=== PATIENT | male | born 1990 | race Caucasian/White ===

== ENCOUNTER 2022-05-30 12:00 | Emergency (ER) | payer MEDICAID, SELFPAY ==
--- NOTE | 2022-05-30 12:03 | ED.GENADULT ---
HPI - General Adult General Chief complaint: Nausea/Vomiting/Diarrhea <GENOVEVA Sosa - Last Filed: 05/30/22 12:09> Stated complaint: Sever stomach pain/multiple complaints <GENOVEVA Sosa - Last Filed: 05/30/22 12:09> Time Seen by Provider: 05/30/22 13:45 <GENOVEVA Sosa - Last Filed: 05/30/22 12:09> Source: patient <GENOVEVA Helm - Last Filed: 05/30/22 16:32> Mode of arrival: ambulatory <GENOVEVA Helm Last Filed: 05/30/22 16:32> Limitations: no limitations <GENOVEVA Helm Last Filed: 05/30/22 16:32> History of Present Illness HPI narrative: Patient is a 31 year old assigned male at with a history of alcohol abuse presenting to the emergency department today with nausea, vomiting, and alcohol use. Patient states that he has been drinking 4 tall boys throughout each afternoon and 6 nips in the mornings. Patient states that he often wakes up with nausea and vomiting. Patietn states that he would like to detox at home. Patient denies any dizziness, lightheadedness, fever, chills, blurry vision, double vision, loss of vision, chest pain, difficulty breathing, shortness of breath, back pain, night sweats, pain with urination, increased urinary frequency, increased urinary urgency, blood in his urine or stool, syncope or a near syncopal episode, recent trauma or falls, bowel incontinence, bladder incontinence, bowel retention, bladder retention, or any other complaints at this time. <GENOVEVA Helm - Last Filed: 05/30/22 16:32> Onset (ago): day(s) <GENOVEVA Helm - Last Filed: 05/30/22 16:32> Severity: mild <GENOVEVA Helm Last Filed: 05/30/22 16:32> Severity scale (1-10): 2 <GENOVEVA Helm Last Filed: 05/30/22 16:32> Relieving factors: none <GENOVEVA Helm Last Filed: 05/30/22 16:32> Exacerbating factors: none <GENOVEVA Helm Last Filed: 05/30/22 16:32> Associated symptoms: nausea/vomiting <GENOVEVA Helm Last Filed: 05/30/22 16:32> Treatments prior to arrival: none <GENOVEVA Helm Last Filed: 05/30/22 16:32> Related Data Home medications: Previous Rx's Medication Instructions Recorded chlordiazepoxide HCl 25 mg capsule See Rx Instructions .Route 05/30/22 .COMPLEX #20 caps <GENOVEVA Sosa - Last Filed: 05/30/22 12:09> Allergies/adverse reactions: Allergies Allergy/AdvReac Type Severity Reaction Status Date / Time No Known Allergies Allergy Verified 05/30/22 12:05 <GENOVEVA Sosa - Last Filed: 05/30/22 12:09> Review of Systems Constitutional: Constitutional: Reports no additional constitutional complaints, Denies chills, Denies fever(s) and Denies night sweats <GENOVEVA Helm Last Filed: 05/30/22 16:32> Eyes: Eyes: Reports no additional eye complaints, Denies blurry vision, Denies change in vision, Denies diplopia, Denies eye discharge, Denies loss of vision and Denies eye pain <GENOVEVA Helm Last Filed: 05/30/22 16:32> ENT: Denies dizziness <GENOVEVA Helm - Last Filed: 05/30/22 16:32> Cardiovascular: Cardiovascular: Reports no additional cardiovascular complaints, Denies chest pain, Denies lightheadedness, Denies Loss of Consciousness and Denies dyspnea <GENOVEVA Helm Last Filed: 05/30/22 16:32> Respiratory: Respiratory: Reports no additional respiratory complaints and Denies dyspnea <GENOVEVA Helm Last Filed: 05/30/22 16:32> Gastrointestinal: Gastrointestinal: Reports no additional gastrointestinal complaints, Denies abdominal pain, Denies melena, Denies hematochezia, Denies change in bowel habits, Denies change in stool character, Reports nausea and Reports vomiting <GENOVEVA Helm Last Filed: 05/30/22 16:32> Genitourinary: Genitourinary: Reports no additional male genitourinary complaints, Denies hematuria, Denies oliguria, Denies difficulty urinating, Denies dysuria, Denies urinary frequency, Denies urinary hesitancy, Denies urinary incontinence and Denies urinary urgency <GENOVEVA Helm - Last Filed: 05/30/22 16:32> Musculoskeletal: Musculoskeletal: Reports no additional musculoskeletal complaints, Denies numbness and Denies tingling <GENOVEVA Helm - Last Filed: 05/30/22 16:32> Neurologic: Denies dizziness, Denies loss of vision, Denies numbness and Denies tingling <GENOVEVA Helm - Last Filed: 05/30/22 16:32> Psychiatric: Psychiatric: Reports no additional psychiatric complaints <GENOVEVA Helm - Last Filed: 05/30/22 16:32> Endocrine: Endocrine: Reports no additional endocrine complaints <GENOVEVA Helm - Last Filed: 05/30/22 16:32> Hematologic/Lymphatic: Hematologic/Lymphatic: Reports no additional hematologic/lymphatic complaints <GENOVEVA Helm - Last Filed: 05/30/22 16:32> Allergic/Immunologic: Allergic/Immunologic: Reports no additional allergic/immunologic complaints <GENOVEVA Helm - Last Filed: 05/30/22 16:32> [facility] Past Medical History Attestation statement: The following information was validated with the patient. <GENOVEVA Helm - Last Filed: 05/30/22 16:32> Source: old records reviewed and nursing notes reviewed <GENOVEVA Helm - Last Filed: 05/30/22 16:32> Social History Social History: Social History Advance Directives: No Advance Directives Information Provided: No <GENOVEVA Sosa - Last Filed: 05/30/22 12:09> Physical Exam ED Vital Signs: Vital Signs - 24 hr 05/30/22 12:04 05/30/22 14:17 Temperature 98 F 98.4 F Pulse Rate 103 H 79 Respiratory Rate 18 14 Blood Pressure 165/89 H 130/92 H Pulse Oximetry 98 96 Oxygen Delivery Method Room Air Room Air BMI result Body Mass Index 29.9 <GENOVEVA Sosa - Last Filed: 05/30/22 12:09> Vital Signs - 24 hr 05/30/22 12:04 05/30/22 14:17 Temperature 98 F 98.4 F Pulse Rate 103 H 79 Respiratory Rate 18 14 Blood Pressure 165/89 H 130/92 H Pulse Oximetry 98 96 Oxygen Delivery Method Room Air Room Air BMI result Body Mass Index 29.9 <GENOVEVA Helm - Last Filed: 05/30/22 16:32> Const General: cooperative, no acute distress, alert and awake <GENOVEVA Helm - Last Filed: 05/30/22 16:32> Nutritional Appearance: well nourished <GENOVEVA Helm - Last Filed: 05/30/22 16:32> Orientation/consciousness: patient oriented x3 <GENOVEVA Helm - Last Filed: 05/30/22 16:32> Limitations: no limitations <GENOVEVA Helm - Last Filed: 05/30/22 16:32> HENMT Head: Yes normal to inspection and Yes atraumatic <GENOVEVA Helm - Last Filed: 05/30/22 16:32> Ears: hearing grossly normal bilaterally and external ears normal <GENOVEVA Helm - Last Filed: 05/30/22 16:32> General nose exam: Normal external nose present, no nasal discharge noted and no epistaxis <GENOVEVA Helm - Last Filed: 05/30/22 16:32> Face and sinus: Yes normal facial exam, No abrasion and No laceration <GENOVEVA Helm - Last Filed: 05/30/22 16:32> Mouth: Normal oral and palatal mucosa present, no drooling and no muffled voice <GENOVEVA Helm - Last Filed: 05/30/22 16:32> Eyes General: appearance normal, both eyes and all related structures <GENOVEVA Helm - Last Filed: 05/30/22 16:32> Periorbital: periorbital findings normal <GENOVEVA Helm - Last Filed: 05/30/22 16:32> Eyelids: Yes eyelids normal <GENOVEVA Helm - Last Filed: 05/30/22 16:32> Conjunctivae: conjunctivae normal <GENOVEVA Helm - Last Filed: 05/30/22 16:32> Pupils: Equal, round and reactive pupils present <Kay Watters PA - Last Filed: 05/30/22 16:32> EOM: EOMs intact bilaterally <Kay WattersGENOVEVA - Last Filed: 05/30/22 16:32> Neck Neck: Yes normal visual inspection, Yes full ROM and Yes no lymphadenopathy <Kay Watters PA - Last Filed: 05/30/22 16:32> Chest Chest palpation & inspection: normal inspection of the chest <Kay Stewartjared PA - Last Filed: 05/30/22 16:32> Resp Effort & Inspection: normal respiratory effort and able to speak in complete sentences <Kay Watters PA - Last Filed: 05/30/22 16:32> Auscultation: clear to auscultation bilaterally <Kay WattersGENOVEVA - Last Filed: 05/30/22 16:32> Cardio Rate: regular rate <Kay Watters PA - Last Filed: 05/30/22 16:32> Rhythm: regular rhythm <Kay Watters PA - Last Filed: 05/30/22 16:32> GI Inspection: Yes normal to inspection <Kay Watters PA - Last Filed: 05/30/22 16:32> Palpation (GI): Soft to palpation, not firm, nontender and no guarding <Kay Watters PA - Last Filed: 05/30/22 16:32> Neuro General: patient oriented x3 and moves all extremities <Kay Stewartjared PA - Last Filed: 05/30/22 16:32> Cranial nerves: Yes Equal, round and reactive pupils present <Kay StewartGENOVEVA coleman - Last Filed: 05/30/22 16:32> Cognition (Neuro): normal cognition <Kay StewartGENOVEVA coleman - Last Filed: 05/30/22 16:32> Motor exam (neuro): 5/5 motor strength present throughout <Kay StewartGENOVEVA coleman - Last Filed: 05/30/22 16:32> Sensory Exam: Normal double simultaneous stimulation for sensation <Kay Stewartjared PA - Last Filed: 05/30/22 16:32> Coordination: [id number] test normal <Kaykrystal StewartGENOVEVA coleman - Last Filed: 05/30/22 16:32> Extrem General: Yes normal to inspection, Yes full ROM and Yes capillary refill normal <GENOVEVA Helm - Last Filed: 05/30/22 16:32> Psych Appearance: grossly normal <GENOVEVA Helm - Last Filed: 05/30/22 16:32> Mental Status: mental status grossly normal <GENOVEVA Helm - Last Filed: 05/30/22 16:32> Affect: normal affect <GENOVEVA Helm - Last Filed: 05/30/22 16:32> Attitude: cooperative <GENOVEVA Helm - Last Filed: 05/30/22 16:32> Thought process: Normal thought process present <GENOVEVA Helm Last Filed: 05/30/22 16:32> Thought content: Normal thought content present <GENOVEVA Helm - Last Filed: 05/30/22 16:32> Insight: Good insight present (Psych) <GENOVEVA Helm Last Filed: 05/30/22 16:32> Course Course Course Narrative: RME--31yo M w/no sig PMHx c/o cough, dry heaving, nausea, sweats and cold chills x months. Admits sx are intermittent, happen when wakes up in the morning lasting a few hours. Endorses ETOH abuse about 4-5 drinks daily. Last drink last night. Denies known ETOH withdrawal Nontoxic appearing, VSS Labs, UA, Tox, Ethanol ordered <GENOVEVA Sosa - Last Filed: 05/30/22 12:09> Medications Administered Discontinued Medications Generic Name Dose Route Start Last Admin Trade Name Freq PRN Reason Stop Dose Admin Sodium Chloride 1,000 mls @ 999 mls/hr 05/30/22 14:00 05/30/22 15:40 Ns IV 05/30/22 15:00 Infused .Q1H1M ISIDORO Infusion Ondansetron HCl 4 mg 05/30/22 13:46 05/30/22 14:06 Ondansetron Hcl 4 Mg/2 Ml Vial IVPUSH 05/30/22 13:47 4 mg ONCE ONE Administration <GENOVEVA Sosa Last Filed: 05/30/22 12:09> Medications Administered Discontinued Medications Generic Name Dose Route Start Last Admin Trade Name Freq PRN Reason Stop Dose Admin Sodium Chloride 1,000 mls @ 999 mls/hr 05/30/22 14:00 05/30/22 15:40 Ns IV 05/30/22 15:00 Infused .Q1H1M ISIDORO Infusion Ondansetron HCl 4 mg 05/30/22 13:46 05/30/22 14:06 Ondansetron Hcl 4 Mg/2 Ml Vial IVPUSH 05/30/22 13:47 4 mg ONCE ONE Administration <GENOVEVA Helm - Last Filed: 05/30/22 16:32> Medical Decision Making Medical Decision Making [facility] Narrative: Patient is a 31 year old assigned male at with a history of alcohol use presenting to the emergency department today with increased nausea and vomiting. Patient's physical exam was unremarkable. Patient's blood work was unremarkable. I explained my physical exam findings as well as all test results to the patient. I answered all questions asked by the patient. Patient spoke to CARE team who provided the patient with detox resources and financial planning resources to get him started on [facility] [employer]. I stressed the importance of the patient taking his medication as prescribed. I stressed the importance of the patient following up with his primary care provider. I stressed the importance of the patient returning to the emergency department immediately if his symptoms were to worsen or if he were to develop any dizziness, shortness of breath, difficulty breathing, chest pain, blurry vision, loss of vision, nausea, vomiting, abdominal pain, fever, chills, back pain, or any other complaints. Patient verbalized agreement and understanding with this treatment plan and discharge. <GENOVEVA Helm - Last Filed: 05/30/22 16:32> Differential Diagnosis Differential Diagnoses: The differential diagnosis associated with the presentation includes <GENOVEVA Helm - Last Filed: 05/30/22 16:32> alcohol abuse, nausea <GENOVEVA Helm - Last Filed: 05/30/22 16:32> Lab Data [facility] Lab Attestation statement: I reviewed the patient's lab results. <GENOVEVA Helm - Last Filed: 05/30/22 16:32> Result Diagrams: 05/30/22 12:13 05/30/22 12:13 <GENOVEVA Sosa Last Filed: 05/30/22 12:09> Labs: Lab Results 05/30/22 05/30/22 Range/Units 12:13 12:13 WBC 9.4 (4.8-10.8) X10*3/uL RBC 5.33 (4.60-5.80) X10*6/uL Hgb 17.1 (14.0-18.0) g/dl Hct 49.2 (42.0-52.0) % MCV 92.3 (80.0-98.0) fL MCH 32.1 (27.0-33.0) pg MCHC 34.8 (31.0-36.0) g/dl RDW 12.0 (11.0-16.0) % Plt Count 231 (160-400) X10*3/uL MPV 8.9 L (9.4-12.4) fL Immature Gran % (Auto) 0.6 H (0.0-0.4) % Neut % (Auto) 60.5 (45-73) % Lymph % (Auto) 27.0 (20-40) % Newton % (Auto) 9.4 (2-11) % Eos % (Auto) 1.9 (0-4) % Baso % (Auto) 0.6 (0-2) % Lymph # (Auto) 2.5 (1.2-4.9) X10*3/uL Newton # (Auto) 0.9 (0.1-1.2) X10*3/uL Eos # (Auto) 0.2 (0.0-0.4) X10*3/uL Baso # (Auto) 0.1 (0.0-0.2) X10*3/uL Abs Immat Gran (auto) 0.06 H (0.00-0.03) X10*3/uL Absolute Neuts (auto) 5.7 (2.0-8.3) x10*3/uL Absolute Nucleated RBC 0.000 (0.0-0.012) X10*3/uL Nucleated RBC % (auto) 0.0 (0.0-0.2) /100WBC Sodium 140 (135-145) mmol/L Potassium 4.5 (3.3-5.1) mmol/L Chloride 102 (96-108) mmol/L Carbon Dioxide 27 (22-29) mmol/L Anion Gap 16 (12-20) BUN 13 (9-16) mg/dL Creatinine 1.03 (0.5-1.4) mg/dL Estim Creat Clear Calc 104.1 Estimated GFR > 60 Random Glucose 106 (60-115) mg/dL Calcium 9.5 (8.4-10.2) mg/dL Magnesium 2.1 (1.6-2.6) mg/dL Total Bilirubin 1.3 H (0.0-1.0) mg/dL Direct Bilirubin 0.3 (0.0-0.5) mg/dL AST 84 H (5-37) U/L ALT 109 H (0-40) U/L Alkaline Phosphatase 75 (39-117) U/L Total Protein 7.6 (6.5-8.0) g/dL Albumin 4.7 (3.5-5.0) g/dL Lipase 13 (8-78) U/L Ethyl Alcohol < 10 mg/dL <GENOVEVA Sosa - Last Filed: 05/30/22 12:09> Lab Results 05/30/22 05/30/22 Range/Units 12:13 12:13 WBC 9.4 (4.8-10.8) X10*3/uL RBC 5.33 (4.60-5.80) X10*6/uL Hgb 17.1 (14.0-18.0) g/dl Hct 49.2 (42.0-52.0) % MCV 92.3 (80.0-98.0) fL MCH 32.1 (27.0-33.0) pg MCHC 34.8 (31.0-36.0) g/dl RDW 12.0 (11.0-16.0) % Plt Count 231 (160-400) X10*3/uL MPV 8.9 L (9.4-12.4) fL Immature Gran % (Auto) 0.6 H (0.0-0.4) % Neut % (Auto) 60.5 (45-73) % Lymph % (Auto) 27.0 (20-40) % Newton % (Auto) 9.4 (2-11) % Eos % (Auto) 1.9 (0-4) % Baso % (Auto) 0.6 (0-2) % Lymph # (Auto) 2.5 (1.2-4.9) X10*3/uL Newton # (Auto) 0.9 (0.1-1.2) X10*3/uL Eos # (Auto) 0.2 (0.0-0.4) X10*3/uL Baso # (Auto) 0.1 (0.0-0.2) X10*3/uL Abs Immat Gran (auto) 0.06 H (0.00-0.03) X10*3/uL Absolute Neuts (auto) 5.7 (2.0-8.3) x10*3/uL Absolute Nucleated RBC 0.000 (0.0-0.012) X10*3/uL Nucleated RBC % (auto) 0.0 (0.0-0.2) /100WBC Sodium 140 (135-145) mmol/L Potassium 4.5 (3.3-5.1) mmol/L Chloride 102 (96-108) mmol/L Carbon Dioxide 27 (22-29) mmol/L Anion Gap 16 (12-20) BUN 13 (9-16) mg/dL Creatinine 1.03 (0.5-1.4) mg/dL Estim Creat Clear Calc 104.1 Estimated GFR > 60 Random Glucose 106 (60-115) mg/dL Calcium 9.5 (8.4-10.2) mg/dL Magnesium 2.1 (1.6-2.6) mg/dL Total Bilirubin 1.3 H (0.0-1.0) mg/dL Direct Bilirubin 0.3 (0.0-0.5) mg/dL AST 84 H (5-37) U/L ALT 109 H (0-40) U/L Alkaline Phosphatase 75 (39-117) U/L Total Protein 7.6 (6.5-8.0) g/dL Albumin 4.7 (3.5-5.0) g/dL Lipase 13 (8-78) U/L Ethyl Alcohol < 10 mg/dL <GENOVEVA Helm - Last Filed: 05/30/22 16:32> Discharge Plan Discharge Clinical Impression: Alcohol use <GENOVEVA Sosa - Last Filed: 05/30/22 12:09> Patient Disposition: Home, Self-Care <GENOVEVA Sosa - Last Filed: 05/30/22 12:09> Instructions: Alcohol Withdrawal (ED) <GENOVEVA Sosa - Last Filed: 05/30/22 12:09> Additional Instructions: Follow up with your primary care provider. Return to the emergency department immediately if your symptoms worsen or if you develop any dizziness, shortness of breath, difficulty breathing, chest pain, blurry vision, loss of vision, nausea, vomiting, abdominal pain, fever, chills, back pain, or any other complaints. Take your chlordiazepoxide HCL 25mg capsules as directed: Day 1: 50mg orally every 6 hours Day 2: 50mg orally every 8 hours Day 3: 50mg orally every 12 hours Day 4: 50mg once at night You will get violently ill if you drink alcohol on this medication. Please do not do this. Give this information to the pharmacist for your medication discount via [employer]: BIN [id number] [facility] AS[facility] Group [id number] <GENOVEVA Sosa - Last Filed: 05/30/22 12:09> Prescriptions: New chlordiazepoxide HCl 25 mg capsule See Rx Instructions .ROUTE .COMPLEX Qty: 20 0RF Rx Instructions: Day 1: 50mg orally every 6 hours Day 2: 50mg orally every 8 hours Day 3: 50mg orally every 12 hours Day 4: 50mg once at night <GENOVEVA Sosa Last Filed: 05/30/22 12:09> Referrals: [facility] Family Medicine [Provider Group] (Call to establish and follow up with a primary care provider.) [facility] Primary Care, Shannon [Provider Group] (Call to establish and follow up with a primary care provider.) [facility] Primary Care,Wilian [Provider Group] (Call to establish and follow up with a primary care provider.) <GENOVEVA Sosa Last Filed: 05/30/22 12:09> Stand Alone Forms: Work/School Release <GENOVEVA Sosa Last Filed: 05/30/22 12:09> Interventions: ED Discharge Assessment Last Done: 05/30/22 15:49 <GENOVEVA Sosa Last Filed: 05/30/22 12:09> Discharge Date/Time: 03/16/23 15:49 <GENOVEVA Sosa - Last Filed: 05/30/22 12:09> Print Language: Liberian <GENOVEVA Sosa - Last Filed: 05/30/22 12:09>
[2022-05-30 12:04] VITALS: BP 165/89; PULSE 103; RESP 18; TEMP 36.6; O2SAT 98; BMI 29.9
[2022-05-30 12:17] LABS: MANUAL DIFF FLAG NO
[2022-05-30 12:19] LABS: Basophils Absolute Auto 0.1 X10*3/uL (0.0-0.2); Basophils Percent Auto 0.6 % (0-2); Eosinophils Absolute Auto 0.2 X10*3/uL (0.0-0.4); Eosinophils Percent Auto 1.9 % (0-4); Hematocrit 49.2 % (42.0-52.0); Hemoglobin 17.1 g/dl (14.0-18.0); Imm Gran Abs Auto 0.06 X10*3/uL (0.00-0.03); Imm Gran Pct Auto 0.6 % (0.0-0.4); Lymphocytes Absolute Auto 2.5 X10*3/uL (1.2-4.9); Mean Corpuscular HGB Conc 34.8 g/dl (31.0-36.0); Mean Corpuscular Hemoglobin 32.1 pg (27.0-33.0); Mean Corpuscular Volume 92.3 fL (80.0-98.0); Mean Platelet Volume 8.9 fL (9.4-12.4); Monocytes Absolute Auto 0.9 X10*3/uL (0.1-1.2); Monocytes Percent Auto 9.4 % (2-11); Neutrophils Absolute Auto 5.7 x10*3/uL (2.0-8.3); Neutrophils Percent Auto 60.5 % (45-73); Platelet Count 231 X10*3/uL (160-400); Red Blood Count 5.33 X10*6/uL (4.60-5.80); White Blood Count 9.4 X10*3/uL (4.8-10.8)
[2022-05-30 12:43] LABS: Alanine Aminotransferase 109 U/L (0-40); Albumin Level 4.7 g/dL (3.5-5.0); Alkaline Phosphatase 75 U/L (39-117); Anion Gap 16 (12-20); Aspartate Amino Transferase 84 U/L (5-37); Bilirubin Direct 0.3 mg/dL (0.0-0.5); Bilirubin Total 1.3 mg/dL (0.0-1.0); Blood Urea Nitrogen 13 mg/dL (9-16); Calcium 9.5 mg/dL (8.4-10.2); Carbon Dioxide 27 mmol/L (22-29); Chloride 102 mmol/L (96-108); Creatinine Clr Calc Pharmacy 104.1; Estimated Glomerular Filt Rate > 60; Ethanol < 10 mg/dL; Glucose Random 106 mg/dL (60-115); Lipase 13 U/L (8-78); Magnesium 2.1 mg/dL (1.6-2.6); Potassium 4.5 mmol/L (3.3-5.1); Sodium 140 mmol/L (135-145); Total Protein 7.6 g/dL (6.5-8.0)
[2022-05-30] MEDS: 0.9 % Sodium Chloride 1,000 ML 999 ML IV (14:04)
[2022-05-30] MEDS: ondansetron HCL 4 MG/2 ML VIAL IVPUSH (14:06)
[2022-05-30 14:17] VITALS: BP 130/92; PULSE 79; RESP 14; TEMP 36.9; O2SAT 96
--- NOTE | 2022-05-30 15:17 | MHC.RECOVRN ---
This play writer met w/ patient, patient alert, sitting up in bed. Patient reports came to ED for s/s that have been going on for 1-2 years. Patient reports every a.m. sweats, nausea, dry heaving, stomach pain. Patient reports drinking 6 nips from 11a,-5pm and 4, 16 oz beers daily for past 3 years. Patient reports prior to three years, was drinking 3 beers 3 times per week.Patient reports no hx of ETOH seizures, no hx of AVH. Patient reports several years ago, detoxed at home and went into 4 weeks of treatment at [facility] level of care at a facility in [facility] Patient reports attends zo AA meetings weekly. Patient reports in the past had tried Antebuse, Vivitrol and campral. Patient states the only effective medication for ETOH cravings has been Naltrexone, pt states can't remember when last taken, has an old naltrexone rx at home. Patient is currently uninsured, reviewed following up with financial counselor here at the hospital, contact given. Harm reduction reviewed, safe ETOH consumption strategies reviewed. Patient educated regarding risks associated with ETOH withdrawal, reviewed risk of seizure, reviewed s/s of withdrawal and when to present to ED, if dehydrated, if anxiety increases, if experiencing AVH, if tremors increase. Pt encouraged to come to the ED if withdrawal s/s persist. Patient verbalized understanding. Community recovery resources reviewed at bedside, [facility], softball coach, CCC, ATS list, resources left at bedside, Reviewed plan of care per Provider instruction, patient to seed cone picker Librium and apply good RX card, patient to follow med directions and follow at home. Patient encouraged to call this play writer with any questions and concerns, pt encouraged to f/u w/ CCC if interested in continuing Naltrexone. Patient verbalized understanding. Provider aware.
== END 2022-05-30 15:49 | disposition home or self-care (01) ==
PROVIDERS: Physician Assistant; Emergency Provider Emergency Medicine
DX: F10.10 Alcohol abuse, uncomplicated (principal); R11.2 Nausea with vomiting, unspecified; Y90.0 Blood alcohol level of less than 20 mg/100 ml
CPT/HCPCS: 36415; 80048; 80076; 82077; 83690; 83735; 85025; 96361; 96374; 99284; J2405

== ENCOUNTER 2023-04-24 11:40 | Emergency (ER) | payer MEDICAID, SELFPAY ==
--- NOTE | 2023-04-24 | ECG_ITS ---
Test Reason : CP Blood Pressure : / mmHG Vent. Rate : 102 BPM Atrial Rate : 102 BPM P-R Int : 144 ms QRS Dur : 082 ms QT Int : 352 ms P-R-T Axes : 039 -13 -13 degrees QTc Int : 458 ms Sinus tachycardia Nonspecific ST and T wave abnormality Abnormal ECG No previous ECGs available Referred By: Generic ED Physician Electronically Signed By:KAIA JUAREZ
--- NOTE | ~2023-04-24 | XR_ITS ---
EXAMINATION: XR CHEST CLINICAL INFORMATION: Cough COMPARISON: None available. TECHNIQUE: Frontal view of the chest was obtained. FINDINGS: Very slight right basilar atelectasis. No pneumothorax. Trachea is midline. Cardiomediastinal silhouette is not enlarged. No large pleural effusion. Osseous structures are intact. Soft tissues are unremarkable. XR/XR chest 1V IMPRESSION: Very slight right basilar atelectasis.
[2023-04-24 11:45] VITALS: BP 141/86; PULSE 100; RESP 18; TEMP 36.2; O2SAT 96; BMI 31.9
--- NOTE | 2023-04-24 11:45 | ED_ITS ---
HPI - General Adult General Chief complaint: Chest Pain Stated complaint: coughing up blood Time Seen by Provider: 04/24/23 14:43 Source: patient Mode of arrival: ambulatory Limitations: no limitations History of Present Illness HPI narrative: Patient comes to the emergency room complaining of hemoptysis. Patient states that yesterday he slipped, fell and landed on his chest. Patient denies any rib pain. Patient states that this morning he woke up and coughed blood. Patient denies any recent episodes of coughing. Denies chest pain or shortness of breath. Patient states that he has a bit of chest pressure but no pain. This is the 1st time that this happens. Patient denies any prior histories of blood clots. Related Data Previous Rx's Medication Instructions Recorded chlordiazepoxide HCl 25 mg capsule See Rx Instructions .Route 05/30/22 .COMPLEX #20 caps Allergies Allergy/AdvReac Type Severity Reaction Status Date / Time No Known Allergies Allergy Verified 04/24/23 11:45 Review of Systems 2 Review of Systems: Constitutional : No Weight loss, No Fever, No Chills, No Night Sweats, No Fatigue, No Malaise ENT/Mouth : No Hearing loss, No Ear Pain, No Nasal Congestion, No Sinus Pain, No Hoarseness, No sore throat, No Rhinorrhea, No Swallowing Difficulty Eyes: No Eye Pain, No Swelling, No Redness, No Foreign Body, No Discharge, No Vision Changes Cardiovascular : No Chest Pain, No SOB, No Dyspnea on Exertion, No Orthopnea, No Edema, No Palpitations Respiratory : Complaining of small amount of hemoptysis this morning, No Sputum, No Wheezing, No Smoke Exposure, No Dyspnea Gastrointestinal : No Nausea, No Vomiting, No Diarrhea, No Constipation, No abdominal Pain, No Hematochezia, No Melena Genitourinary : no irregular bleeding, No Dysuria, No Urinary Frequency, No Hematuria, No Urinary Incontinence, No Urgency, No Flank Pain, No Urinary Flow Changes, No Hesitancy Musculoskeletal : No joint pain, No Myalgias, No Joint Swelling Skin : No Skin Lesions, No rash Neuro : No Weakness, No Numbness, No Paresthesias, No Loss of Consciousness, No Dizziness, No Headache Psych : No Anxiety/Panic, No Depression, No SI/HI/AH/VH, No Social Issues, Heme/Lymph: No Bruising, No Bleeding,No Lymphadenopathy Endocrine : No Polyuria, No Polydipsia, No Temperature Intolerance [facility] Social History Social History Advance Directives: No Physical Exam ED Vital Signs: Vital Signs - 24 hr 04/24/23 11:45 Temperature 97.1 F Pulse Rate 100 Respiratory Rate 18 Blood Pressure 141/86 H Pulse Oximetry 96 Oxygen Delivery Method Room Air BMI result Body Mass Index 31.9 Const Other: Appearance: Alert. Oriented X3. No acute distress. Eyes: Pupils equal, round and reactive to light. ENT: Pharynx normal. Neck: Normal inspection. Neck supple. No lymph nodes noted. No crepitus CVS: Normal heart rate and rhythm. Pulses normal. Normal S1 and S2 Respiratory: No respiratory distress. Breath sounds normal. No Wheezing. No rales Abdomen: Soft and nontender. No rigidity. No distention. Skin: Skin warm and dry. Normal skin color. Normal skin turgor. Extremities: No lower extremity edema. No Lacerations. No Rash Neuro: Oriented X 3. No motor deficit. No sensory deficit. Moving all extremities. No slurred speech. CN 2 through 12 grossly intact Psych: calm, cooperative, normal affect Course Course Course Narrative: RME: Coughing up 'spatters' of blood starting this morning. C/o chest pressure below diaphragm/ribs. Denies smoking cigarettes endorses hx ETOH. Last drink several hours ago. Drinks 6 nips per day. Denies fevers or cold like symptoms. Not looking for detox. Has a handle on that . No hx withdrawl symptoms. Medical Decision Making Medical Decision Making [facility] Narrative: My interpretation of labs: Hemoglobin/white blood cell count/Hematology at baseline. Chemistry shows hypokalemia 3.0, repleted p.o., AST ALT chronically elevated -chest x-ray my interpretation: No infiltrates -I discussed with the patient that given his history of hemoptysis, it would be best to rule out a pulmonary embolism. D-dimer has been ordered, pending, patient agreeable. Discussed with the patient that a pulmonary embolism may be very dangerous even fatal. Discussed with the patient that if the D-dimer is positive, does not mean that there is a blood clot but we would scanned him, patient agrees -15:07, I was informed by the patient's tech who went to draw the blood that the patient had eloped Differential Diagnosis Differential Diagnoses: The differential diagnosis associated with the presentation includes (Pneumonia, bronchitis, pulmonary embolism) Admission/Observation Consideration of admission/observation: Escalation of care including admission/observation considered (Given patient's history, patient was considered) Lab Data MDM Lab Attestation statement: I reviewed the patient's lab results. 04/24/23 12:11 04/24/23 12:11 Labs: Lab Results 04/24/23 Range/Units 12:11 WBC 8.2 (4.8-10.8) X10*3/uL RBC 5.11 (4.60-5.80) X10*6/uL Hgb 16.5 (14.0-18.0) g/dl Hct 47.3 (42.0-52.0) % MCV 92.6 (80.0-98.0) fL MCH 32.3 (27.0-33.0) pg MCHC 34.9 (31.0-36.0) g/dl RDW 13.9 (11.0-16.0) % Plt Count 275 (160-400) X10*3/uL MPV 8.7 L (9.4-12.4) fL Immature Gran % (Auto) 0.7 H (0.0-0.4) % Neut % (Auto) 54.4 (45-73) % Lymph % (Auto) 34.0 (20-40) % Whitman % (Auto) 8.5 (2-11) % Eos % (Auto) 1.8 (0-4) % Baso % (Auto) 0.6 (0-2) % Lymph # (Auto) 2.8 (1.2-4.9) X10*3/uL Whitman # (Auto) 0.7 (0.1-1.2) X10*3/uL Eos # (Auto) 0.2 (0.0-0.4) X10*3/uL Baso # (Auto) 0.1 (0.0-0.2) X10*3/uL Abs Immat Gran (auto) 0.06 H (0.00-0.03) X10*3/uL Absolute Neuts (auto) 4.4 (2.0-8.3) x10*3/uL Absolute Nucleated RBC 0.000 (0.0-0.012) X10*3/uL Nucleated RBC % (auto) 0.0 (0.0-0.2) /100WBC Sodium 141 (135-145) mmol/L Potassium 3.0 L (3.3-5.1) mmol/L Chloride 105 (96-108) mmol/L Carbon Dioxide 23 (22-29) mmol/L Anion Gap 16 (12-20) BUN 6 L (9-16) mg/dL Creatinine 0.91 (0.5-1.4) mg/dL Estim Creat Clear Calc 120.3 Estimated GFR > 60 Random Glucose 161 H (60-115) mg/dL Calcium 9.0 (8.4-10.2) mg/dL Total Bilirubin 0.5 (0.0-1.0) mg/dL AST 71 H (5-37) U/L ALT 121 H (0-40) U/L Alkaline Phosphatase 83 (39-117) U/L Total Protein 7.9 (6.5-8.0) g/dL Albumin 4.6 (3.5-5.0) g/dL Independent Interpretation I performed an independent interpretation of an: Plain X-Ray Radiology Impression Discussion of test interpretation with radiology: I have reviewed the radiologist's reading. Radiologist Impression: Very slight right basilar atelectasis. No pneumothorax. Trachea is midline. Cardiomediastinal silhouette is not enlarged. No large pleural effusion. Osseous structures are intact. Soft tissues are unremarkable. XR/XR chest 1V IMPRESSION: Very slight right basilar atelectasis. Critical Care Time Critical Care Time Critical Care Time: Yes Total Critical Care Time: 45 Attestation: I have personally provided critical care time. Time includes review of lab data, radiology results, discussion with consultants, and monitoring for potential decompensation. Intervention performed as documented. Discharge Plan Discharge Clinical Impression: Hemoptysis Patient Disposition: Elopement Prescriptions: No Action chlordiazepoxide HCl 25 mg capsule See Rx Instructions .ROUTE .COMPLEX Qty: 20 0RF Rx Instructions: Day 1: 50mg orally every 6 hours Day 2: 50mg orally every 8 hours Day 3: 50mg orally every 12 hours Day 4: 50mg once at night
[2023-04-24 12:16] LABS: MANUAL DIFF FLAG NO
[2023-04-24 12:19] LABS: Basophils Absolute Auto 0.1 X10*3/uL (0.0-0.2); Basophils Percent Auto 0.6 % (0-2); Eosinophils Absolute Auto 0.2 X10*3/uL (0.0-0.4); Eosinophils Percent Auto 1.8 % (0-4); Hematocrit 47.3 % (42.0-52.0); Hemoglobin 16.5 g/dl (14.0-18.0); Imm Gran Abs Auto 0.06 X10*3/uL (0.00-0.03); Imm Gran Pct Auto 0.7 % (0.0-0.4); Lymphocytes Absolute Auto 2.8 X10*3/uL (1.2-4.9); Mean Corpuscular HGB Conc 34.9 g/dl (31.0-36.0); Mean Corpuscular Hemoglobin 32.3 pg (27.0-33.0); Mean Corpuscular Volume 92.6 fL (80.0-98.0); Mean Platelet Volume 8.7 fL (9.4-12.4); Monocytes Absolute Auto 0.7 X10*3/uL (0.1-1.2); Monocytes Percent Auto 8.5 % (2-11); Neutrophils Absolute Auto 4.4 x10*3/uL (2.0-8.3); Neutrophils Percent Auto 54.4 % (45-73); Platelet Count 275 X10*3/uL (160-400); Red Blood Count 5.11 X10*6/uL (4.60-5.80); Red Cell Distribution Width 13.9 % (11.0-16.0); White Blood Count 8.2 X10*3/uL (4.8-10.8)
[2023-04-24 12:31] LABS: Alanine Aminotransferase 121 U/L (0-40); Albumin Level 4.6 g/dL (3.5-5.0); Alkaline Phosphatase 83 U/L (39-117); Anion Gap 16 (12-20); Aspartate Amino Transferase 71 U/L (5-37); Bilirubin Total 0.5 mg/dL (0.0-1.0); Blood Urea Nitrogen 6 mg/dL (9-16); Carbon Dioxide 23 mmol/L (22-29); Chloride 105 mmol/L (96-108); Creatinine Clr Calc Pharmacy 120.3; Estimated Glomerular Filt Rate > 60; Glucose Random 161 mg/dL (60-115); Sodium 141 mmol/L (135-145); Total Protein 7.9 g/dL (6.5-8.0)
--- NOTE | 2023-04-24 15:00 | PC.NURSE ---
pt not in the room when this rn went to medicated patient.
== END 2023-04-24 15:22 | disposition left against medical advice (07) ==
PROVIDERS: Nurse Practitioner Family; Emergency Provider Emergency Medicine
DX: R07.89 Other chest pain (principal); R04.2 Hemoptysis; Z79.899 Other long term (current) drug therapy
CPT/HCPCS: 36415; 71045; 80053; 85025; 93005; 99283

== ENCOUNTER → 2023-04-24 12:05 | Outpatient (BNV) | payer MEDICAID, SELFPAY | PROVIDERS: Visit Provider Internal Medicine | DX: R94.31 Abnormal electrocardiogram [ECG] [EKG] (principal) | CPT/HCPCS: 93010 ==

== ENCOUNTER 2023-06-06 08:31 | Outpatient (REF) | payer OTHER, SELFPAY ==
[2023-06-06 08:42] LABS: MANUAL DIFF FLAG NO
[2023-06-06 09:36] LABS: Basophils Percent Auto 0.5 % (0-2); Eosinophils Absolute Auto 0.2 X10*3/uL (0.0-0.4); Hemoglobin 16.4 g/dl (14.0-18.0); Imm Gran Abs Auto 0.05 X10*3/uL (0.00-0.03); Imm Gran Pct Auto 0.7 % (0.0-0.4); Lymphocytes Absolute Auto 2.1 X10*3/uL (1.2-4.9); Lymphocytes Percent Auto 27.8 % (20-40); Mean Corpuscular HGB Conc 34.9 g/dl (31.0-36.0); Mean Corpuscular Hemoglobin 32.1 pg (27.0-33.0); Mean Platelet Volume 9.8 fL (9.4-12.4); Monocytes Absolute Auto 0.6 X10*3/uL (0.1-1.2); Neutrophils Absolute Auto 4.6 x10*3/uL (2.0-8.3); Platelet Count 280 X10*3/uL (160-400); Red Blood Count 5.11 X10*6/uL (4.60-5.80); Red Cell Distribution Width 12.4 % (11.0-16.0); White Blood Count 7.6 X10*3/uL (4.8-10.8)
[2023-06-06 09:38] LABS: Estimated Average Glucose 97 mg/dL
[2023-06-06 10:15] LABS: Alanine Aminotransferase 38 U/L (0-40); Albumin Level 4.6 g/dL (3.5-5.0); Alkaline Phosphatase 72 U/L (39-117); Anion Gap 12 (12-20); Aspartate Amino Transferase 28 U/L (5-37); Bilirubin Total 0.6 mg/dL (0.0-1.0); Blood Urea Nitrogen 17 mg/dL (9-16); Calcium 9.8 mg/dL (8.4-10.2); Carbon Dioxide 28 mmol/L (22-29); Chloride 105 mmol/L (96-108); Cholesterol 187 mg/dL (<200); Estimated Glomerular Filt Rate > 60; Glucose Fasting 113 mg/dL (60-99); HDL Cholesterol 49 mg/dL (>40); LDL Cholesterol Calculated 109 mg/dL (<100); Potassium 3.9 mmol/L (3.3-5.1); Sodium 141 mmol/L (135-145); Total Protein 7.7 g/dL (6.5-8.0); Triglycerides 148 mg/dL (<150)
[2023-06-06 10:27] LABS: Vitamin B12 546 pg/mL (200-900)
[2023-06-06 10:30] LABS: Thyroid Stimulating Hormone 0.86 uIU/mL (0.32-4.0)
== END 2023-06-06 08:32 | disposition home or self-care (01) ==
LOC: HO.LAB 08:31
PROVIDERS: Visit Provider Psychiatry & Neurology Psychiatry
DX: F41.1 Generalized anxiety disorder (principal)
CPT/HCPCS: 36415; 80053; 80061; 82607; 83036; 84443; 85025

== ENCOUNTER 2023-06-13 08:00 | Outpatient (RCR) | payer OTHER, SELFPAY ==
[2023-06-02 11:55] VITALS: BP 106/70; PULSE 76; TEMP 37
[2023-06-02 11:58] VITALS: BMI 32.1
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
--- NOTE | 2023-06-05 15:05 | HO.PHP ---
Client's case has been opened and reviewed in team.
--- NOTE | 2023-06-12 16:14 | HO.PHP ---
Pt called at roughly 10 am to check in since pt called out today. Reports his girlfriend has been having migraines and he will be going with her to see a neurologist today. Pt is concerned about his girlfriend. He is scheduled to discharge tomorrow but pt states depending how his girlfriends appt goes today he feel he may need to stay an extra day. Discharge date TBD tomorrow. Pt Reported he is safe, no SI. Will be in tomorrow.
--- NOTE | 2023-06-13 11:08 | HO.PHP ---
PHP staff member spoke to Richa through [facility], to gather Edward's appointment time. Edward's OP therapy intake appointment is scheduled for June 16, 2023 at 10 AM withkal Mackay at [address] [place] [address] in [place], [place] . The Psychiatry appointment is scheduled for June 30, 2023 at 11 AM via telehealth.
--- NOTE | 2023-06-13 14:42 | PC.NURSE ---
Edward stated he has a PCP who he sees at [facility] primary care at [address] [place] [address]. He stated he would like to see someone else in the practice as he does not feel this is a good fit for him. He called [facility] practice and asked if he could switch to another provider in the office. They stated they will reach out to his provider and see if they can make a change and will call him back. If not he is welcome to go to one of the other practices within [facility].
--- NOTE | 2023-06-13 23:38 | P.PNPSP_ITS ---
Subjective Subjective Date of Service: 06/13/23 Reason For Visit: depression,anxiety,AUD Interim History: I got a lot on my mind Patient reports yesterday he had a real bad headache. He continues to avoid cannabis use. His mood is okay denies any depression although notes having some residual irritablity. Describes poor frustration tolerance. Some vague aggressive ideation has occurred rarely in the past but denies any recent AI, some issue with impulsivity, He is tolerating Trileptal and currently at 300 mg BID. Denies any sedation, agrees to continue to titrate towards 600 mg BID. Denies any hopelessness or SI. Medication Compliance: Yes Side effects from medications: No Attending Groups: Yes Review of Systems Acute medical concerns: No Mental Status Exam Mental Status Exam Narrative: MSE? Alert, oriented, in no acute distress. Calm, cooperative, engaged. No psychomotor agitation or neurovegetative retardation. Eye contact maintained. Mood anxious, affect variable, mood congruent. Speech normal. Thought process linear, coherent. Thought content related to stressors, denies any helplessness, hopelessness or SI.? No aggressive ideation or HI. No paranoia or delusional content elicited. No evidence of psychosis. Insight and judgment fair but a dequate. Diagnostics Vital Signs (24Hr): BMI result Body Mass Index 32.1 Assessment & Plan Assessment & Plan (1) Alcohol abuse with alcohol-induced disorder: Status: Acute Code(s): F10.19 - Alcohol abuse with unspecified alcohol-induced disorder (2) Generalized anxiety disorder: Status: Acute Code(s): F41.1 - Generalized anxiety disorder (3) Depressive disorder, not elsewhere classified: Status: Acute Code(s): F32.89 - Other specified depressive episodes (4) Other disorder of impulse control: Status: Acute Code(s): F63.89 - Other impulse disorders (5) Nicotine dependence, chewing tobacco, uncomplicated: Status: Acute Code(s): F17.220 - Nicotine dependence, chewing tobacco, uncomplicated (6) Cannabis use, unspecified, uncomplicated: Status: Acute Code(s): F12.90 - Cannabis use, unspecified, uncomplicated Certification I certify that partial hospital treatment is medically necessary due to the symptoms and problems resulting from the patient's mental illness and the failure to treat the patient at the partial hospital level of care would likely result in the patient requiring inpatient psychiatric care which could not be prevented at a less intensive level of care. Total time managing care of this patient today ____ minutes. Discharge Plan Discharge Attending provider: Ernestina Marc Additional Instructions: Edward's OP therapy intake appointment is scheduled for June 16, 2023 at 10 AM withkal Mackay at [address] [place] [address] in [place], [place] [phone]. Edward's med management appointment is scheduled for June 30, 2023 at 11 AM via telehealth with Neva Newsome. Medications: New oxcarbazepine 150 mg tablet See Rx Instructions .ROUTE .COMPLEX Qty: 30 0RF Rx Instructions: take 1 tablet po daily at bedtime for 4 days; then increase dose to 2 tablets po daily at bedtime and 1 tablet daily in AM propranolol 10 mg tablet 10 mg PO BID PRN (Reason: anxiety) Qty: 30 0RF oxcarbazepine 300 mg tablet 300 mg PO BID 30 Days Qty: 60 0RF Stand Alone Forms: Patient Portal Discharge page Print Language: Estonian
== END 2023-06-13 23:59 | disposition home or self-care (01) ==
LOC: HO.PHPA 08:00
PROVIDERS: Visit Provider Psychiatry & Neurology Psychiatry
DX: F32.89 Other specified depressive episodes (principal); F41.1 Generalized anxiety disorder; F63.89 Other impulse disorders; F10.19 Alcohol abuse with unspecified alcohol-induced disorder; F12.90 Cannabis use, unspecified, uncomplicated; F17.220 Nicotine dependence, chewing tobacco, uncomplicated
CPT/HCPCS: 90791; 90853